=== PATIENT | female | born 1995 | race African-American/Black ===

== ENCOUNTER 2017-06-03 11:56 | Emergency (ER) | payer SELFPAY ==
[~2017-06-03] VITALS: Ht 182.9 cm; Wt 79.4 kg
[2017-06-03 13:46] LABS: Basophils # (auto) 0.1 uL; Basophils % (auto) 0.6 % (0.0-2.0); Eosinophils # (auto) 0 uL; Hematocrit 44.2 % (36.0-46.0); Hemoglobin 14.3 g/dL (12.2-16.2); Lymphocytes # (auto) 1.4 uL; Lymphocytes % (auto) 13.8 % (10.0-50.0); Mean Corpuscular Hemoglobin 28.1 pg (28.0-32.0); Mean Corpuscular Hgb Conc. 32.3 g/dL (32.0-36.0); Mean Corpuscular Volume 86.9 fL (80.0-100.0); Mean Platelet Volume 8.6 fL (6.9-10.8); Monocytes # (auto) 0.6 uL; Monocytes % (auto) 5.4 % (0.0-12.0); Neutrophils # (auto) 8.3 uL; Neutrophils % (auto) 80.2 % (37.0-80.0); Nucleated Red Blood Cells % 0.1 %; Platelet Count (auto) 216 10^3/uL (140-450); Red Cell Distribution Width 14.3 % (11.8-14.3); White Blood Cell 10.4 10^3/uL (4.4-10.8)
[2017-06-03 14:01] LABS: Albumin 4.5 g/dL (3.4-5.0); Anion Gap 12 (5-15); Aspartate Aminotransferase 21 U/L (15-37); BUN/Creatinine Ratio 20.7; Blood Urea Nitrogen 19 mg/dL (7-18); Calcium 9.2 mg/dL (8.5-10.1); Carbon Dioxide 21 mmol/L (21-32); Chloride 105 mmol/L (98-107); GFR African American 96 mL/min; GFR Non-African American 80 mL/min; Glucose 74 mg/dL (74-106); Potassium 4.3 mmol/L (3.5-5.1); Sodium 138 mmol/L (136-145)
[2017-06-03 14:05] LABS: Alkaline Phosphatase 45 U/L (45-117); Bilirubin, Total 0.3 mg/dL (0.2-1.0); Total Protein 8.2 g/dL (6.4-8.2)
[2017-06-03 18:37] VITALS: BP 129/72
== END 2017-06-03 20:11 | disposition left against medical advice (07) ==
LOC: ER 11:56
DX: R07.9 Chest pain, unspecified (principal); Z53.21 Procedure and treatment not carried out due to patient leaving prior to being seen by health care provider
CPT/HCPCS: 36415; 80053; 83735; 84484; 85025; 93005

== ENCOUNTER 2017-08-26 08:20 | Emergency (ER) | payer MEDICAID, OTHER ==
[~2017-08-26] VITALS: Ht 182.9 cm; Wt 83.9 kg
[2017-08-26 09:09] VITALS: BP 123/63
[2017-08-26] MEDS ORDERED: SILVER SULFADIAZINE 1 % TOPICAL CREAM 50GM TOP ONE (10:45)
[2017-08-26] MEDS ORDERED: HYDROcodone-ACET 5/325MG TAB ONE (10:55)
[2017-08-26] MEDS ORDERED: HYDROcodone-ACET 5/325MG TAB PO ONE (11:00)
== END 2017-08-26 11:33 | disposition home or self-care (01) ==
LOC: ER 08:20
DX: R51 Headache (principal)
CPT/HCPCS: 70450